=== PATIENT | female | born 1990 | race Caucasian/White ===

== ENCOUNTER 2021-07-30 07:55 | Inpatient (IN) ==
[2021-07-30] MEDS ORDERED: Famotidine 20 MG/2 ML VIAL IVP PRN (08:12)
[2021-07-30] MEDS ORDERED: Metoclopramide 10 MG/2 ML VIAL IVP PRN (08:12)
[2021-07-30] MEDS ORDERED: Ondansetron 4 MG/2 ML VIAL IVP PRN (08:12)
[2021-07-30] MEDS ORDERED: Naloxone 0.4 MG/ML INJ IVP PRN (08:12)
[2021-07-30] MEDS ORDERED: Azithromycin 500 MG in 0.9 % Sodium Chloride 250 ML IVPB PRN (08:12)
[2021-07-30] MEDS ORDERED: *HR* Nalbuphine 10 MG/ML AMPUL IV PRN (08:12)
[2021-07-30] MEDS ORDERED: Lidocaine 1% 20 ML MDV ID PRN (08:12)
[2021-07-30] MEDS ORDERED: Ringers Solution, Lactated 1,000 ML IVC SCH (08:15)
[2021-07-30] MEDS ORDERED: EPHEDrine 50 MG/ML VIAL IVP PRN (08:41)
[2021-07-30] MEDS ORDERED: Epidural Premix (fent/bupiv) 110 ML EP SCH (08:45)
[2021-07-30] MEDS ORDERED: miSOPROStoL 25 MCG TABLET PO PRN (09:02)
[2021-07-30 09:07] LABS: Basophils # 0.1 K/mcL (0.0-0.2); Basophils % 1.1 %; Eosinophils # 0.1 K/mcL (0.0-0.6); Eosinophils % 1.5 %; Hematocrit 34.6 % (35.3-44.9); Immature Granulocytes % 0.4 % (0-4); Lymphocytes # 1.8 K/mcL (0.6-4.6); Lymphocytes % 22.3 %; Mean Corpuscular HGB Conc 31.8 g/dL (31.6-35.5); Mean Corpuscular Hemoglobin 25.8 pg (28.0-33.3); Monocytes # 0.7 K/mcL (0.0-1.3); Monocytes % 8.8 %; Neutrophils # 5.4 K/mcL (1.6-8.9); Platelet Count 256 K/mcL (140-400); Red Blood Count 4.27 M/mcL (3.82-4.97); Red Cell Distribution Width 13.5 % (11.5-14.5); Segmented Neutrophils % 65.9 %; White Blood Count 8.2 K/mcL (4.3-11.1)
[2021-07-30 09:11] LABS: Amphetamine Screen,Urine Negative ng/mL (Cutoff=1000); Barbiturate Screen,Urine Negative ng/mL (Cutoff=200); Benzodiazepines Screen,Urine Negative ng/mL (Cutoff=200); Cannabinoid Screen,Urine Negative ng/mL (Cutoff = 50); Cocaine Screen,Urine Negative ng/mL (Cutoff= 300); Opiate Screen,Urine Negative ng/mL (Cutoff=300); Phencyclidine Screen,Urine Negative ng/mL (Cutoff=25)
[2021-07-30 09:48] LABS: Influenza A PCR Negative (Negative); Influenza B PCR Negative (Negative); Resp. Syncytial Virus PCR Negative (Negative); SARS-CoV-2 by PCR (In House) Negative (Negative)
[2021-07-30] MEDS ORDERED: Penicillin G Potassium 5,000,000 UNIT in 0.9 % Sodium Chloride Mini Bag 100 ML IVPB ONE (10:59)
[2021-07-30] MEDS ORDERED: Oxytocin 20 units/ LR 1000 mL 20 UNIT/1,000 ML BAG IVC SCH ×2 (11:00→18:46)
[2021-07-30] MEDS ORDERED: Penicillin G Potassium 2,500,000 UNIT/105 ML MLS IVPB SCH (16:00)
[2021-07-30] MEDS ORDERED: Ropivacaine/PF 0.2% 20 ML VIAL ONE (16:07)
[2021-07-30] MEDS ORDERED: Benzocaine/Menthol 56 GM AEROSOL SPRAY TP PRN (18:46)
[2021-07-30] MEDS ORDERED: Lanolin 7 G OINT...G. TP PRN (18:46)
[2021-07-30] MEDS ORDERED: Ondansetron ODT 4 MG TAB.RAPDIS SL PRN (18:46)
[2021-07-30] MEDS ORDERED: Rho Immune Globulin 1,500 UNIT SYRINGE IM PRN (18:46)
[2021-07-30 21:46] VITALS: O2SAT 99
[2021-07-30] MEDS: Acetaminophen 325 MG TABLET PO SCH (22:44)
[2021-07-30] MEDS: Ibuprofen 600 MG TABLET PO SCH (22:44)
[2021-07-31 08:03] VITALS: BP 122/79; TEMP 98.2
[2021-07-31] MEDS ORDERED: Prenatal Vit/FA 1 EACH TABLET PO SCH (09:00)
[2021-07-31] MEDS: Ibuprofen 600 MG TABLET PO SCH ×2 (09:27→15:40)
[2021-07-31] MEDS: Acetaminophen 325 MG TABLET PO SCH ×2 (09:28→15:39)
[2021-07-31 17:14] VITALS: PULSE 93
== END 2021-07-31 19:48 | disposition home or self-care (01) | DRG 560 ==
LOC: 1NENULAB 07:55 → 1NENUOBS 21:25
PROVIDERS: ADMIT Advanced Practice Midwife; ATTEND Advanced Practice Midwife